=== PATIENT | male | born 1955 | race Caucasian/White ===

== ENCOUNTER 2017-05-27 22:15 | Emergency (ER) | payer OTHER ==
[~2017-05-27 22:15] MED LIST: ANAS1TAB PO; ASCO10002 PO; ASPI-482 PO; ATOR10TA PO; AZIT250T PO; CARI350T PO; CARV3.12 PO; CARV6.25 PO; CEFP200T PO; CHOL500016 PO; CYAN10005 PO; GLUC1TAB69 PO; IODI1GRA MC; LACT1CAP29 PO; LISI2.5T PO; MAGN400C PO; MULT-245 PO; NIAC1000 PO; NITR0.4T22 SL; OMEG500C PO; OXYC-323 PO; PRAS50CA PO; RESV100C PO; TAMS0.4C97 PO; TEST200V3 IM; THYR30TA PO; UBID100C26 PO; [UNRECOGNIZED DRUG - OTHER] PO
--- NOTE | 2017-05-27 22:22 | ED.ADGEN ---
Past History Past Medical History: CAD, Hypertension, [place], Pneumonia, Other Past Surgical History: Coronary Bypass Surgery, Lumbar Laminectomy, Other Smoking: Non-smoker Alcohol Use: None Drug Use: None Adult General Chief Complaint Chief Complaint " I got some chest pain..or really just numbness... " HPI HPI Patient is a 62 year old male who presents with above hx and complaints of chest pain .. or numbness, in central chest starting at 2130 hrs. Pt. has extensive cardiac hx. with 4 vessel bypass and mitral renuka. repair in 2013 at [facility]. Pt. does take daily ASA, but not anticoagulants. De fibrillator placement in 09/2014. Hx. HTN. Hx multiple surgeries- Hernia, [place] extractions, Fx ankles, Lumbar/ Disk repairs, Laminoplasty, Shoulder repair. Pt. follows at [facility] for cardiology and [facility] for maintenance healthcare. Pt hx Pneumonia in 2013. Pt. requesting transfer to [facility] if any abnormal findings on his cardiac work up, since all his cardiac care has been there. Review of Systems Review of Systems Constitutional: Denies fever or chills [] Eyes: Denies change in visual acuity, redness, or eye pain [] HENT: Denies nasal congestion or sore throat [] Respiratory: Denies cough or shortness of breath [] Cardiovascular: No additional information not addressed in [facility] [] GI: Denies abdominal pain, nausea, vomiting, bloody stools or diarrhea [] : Denies dysuria or hematuria [] Musculoskeletal: Chronic back pain or joint pain [] Integument: Denies rash or skin lesions [] Neurologic: Denies headache, focal weakness or sensory changes [] Endocrine: Denies polyuria or polydipsia [] All other systems were reviewed and found to be within normal limits, except as documented in this note. Family History Family History Noncontributory Current Medications Current Medications Current Medications Medications (Trade) Dose Ordered Sig/Leland Start Time Stop Time Status Last Admin Dose Admin Aspirin (Children'S Aspirin) 324 mg 1X ONCE 05/27/17 22:30 05/27/17 22:33 DC 05/27/17 22:30 324 MG Enoxaparin Sodium (Lovenox 100mg Syringe) 100 mg 1X ONCE 05/27/17 23:00 05/27/17 23:01 DC 05/27/17 23:00 100 MG Fentanyl Citrate (Fentanyl 2ml Vial) 25 mcg PRN Q15MIN PRN 05/27/17 22:30 05/28/17 22:29 Lactated Ringer's 1,000 ml @ 100 mls/hr Q10H 05/27/17 22:30 05/27/17 22:47 DC 05/27/17 22:30 100 MLS/HR Nitroglycerin (Nitro-Bid Oint) 1 inch 1X ONCE 05/27/17 22:30 05/27/17 22:33 DC 05/27/17 22:30 1 INCH Allergies Allergies Allergies Coded Allergies Type Severity Reaction Last Updated Verified morphine Allergy Intermediate gi -nausea / vomiting 04/01/14 Yes Physical Exam Physical Exam Constitutional: Well developed, well nourished, no acute distress, non-toxic appearance. [] HENT: Normocephalic, atraumatic, bilateral external ears normal, oropharynx moist, no oral exudates, nose normal. Glasses. Eyes: PERRLA, EOMI, conjunctiva normal, no discharge. [] Neck: Normal range of motion, no tenderness, supple, no stridor. [] Cardiovascular:Heart rate regular rhythm, Mitral murmur-flow Lungs & Thorax: Bilateral breath sounds clear to auscultation []Pacer/Defib. Lt chest wall. Midline scar Abdomen: Bowel sounds normal, soft, no tenderness, no masses, no pulsatile masses. Old surgery scars. Skin: Warm, dry, no erythema, no rash. [] Back: No tenderness, no CVA tenderness. [Old surgery scars. Extremities: No tenderness, no cyanosis, no clubbing, ROM intact, no edema. Old surgery scars. Lt. hip pain- chronic Neurologic: Alert and oriented X 3, normal motor function, normal sensory function, no focal deficits noted. [] Psychologic: Affect normal, judgement normal, mood normal. [] Current Patient Data Vital Signs Vital Signs Date Time Temp Pulse Resp B/P (MAP) Pulse Ox O2 Delivery O2 Flow Rate FiO2 05/27/17 23:15 16 98 05/27/17 22:34 98.5 69 Room Air 05/27/17 22:30 181/86 Lab Results Laboratory Tests Test 05/27/17 22:30 05/28/17 00:57 White Blood Count 11.5 x10^3/uL (4.0-11.0) H Red Blood Count 5.59 x10^6/uL (4.30-5.70) Hemoglobin 18.2 g/dL (13.0-17.5) H Hematocrit 52.5 % (39.0-53.0) Mean Corpuscular Volume 94 fL (79-100) Mean Corpuscular Hemoglobin 33 pg (25-35) Mean Corpuscular Hemoglobin Concent 35 g/dL (31-37) Red Cell Distribution Width 13.3 % (11.5-14.5) Platelet Count 165 x10^3/uL (140-400) Neutrophils (%) (Auto) 62 % (31-73) Lymphocytes (%) (Auto) 26 % (24-48) Monocytes (%) (Auto) 9 % (0-9) Eosinophils (%) (Auto) 3 % (0-3) Basophils (%) (Auto) 1 % (0-3) Neutrophils # (Auto) 7.1 x10^3uL (1.8-7.7) Lymphocytes # (Auto) 3.0 x10^3/uL (1.0-4.8) Monocytes # (Auto) 1.0 x10^3/uL (0.0-1.1) Eosinophils # (Auto) 0.3 x10^3/uL (0.0-0.7) Basophils # (Auto) 0.1 x10^3/uL (0.0-0.2) Platelet Estimate Adequate (ADEQUATE) Large Platelets Occ Prothrombin Time 10.7 SEC (9.4-11.4) Prothrombin Time INR 1.0 (0.9-1.1) PTT 28 SEC (23-33) D-Dimer (Luz) 0.28 mg/L (0.00-0.50) Sodium Level 142 mmol/L (136-145) Potassium Level 3.9 mmol/L (3.5-5.1) Chloride Level 104 mmol/L (98-107) Carbon Dioxide Level 34 mmol/L (21-32) H Anion Gap 4 (6-14) L Blood Urea Nitrogen 18 mg/dL (8-26) Creatinine 1.3 mg/dL (0.7-1.3) Estimated GFR (Cockcroft-Gault) 55.8 BUN/Creatinine Ratio 14 (6-20) Glucose Level 96 mg/dL (70-99) Calcium Level 9.5 mg/dL (8.5-10.1) Magnesium Level 1.9 mg/dL (1.8-2.4) Total Bilirubin 0.5 mg/dL (0.2-1.0) Aspartate Amino Transferase (AST) 22 U/L (15-37) Alanine Aminotransferase (ALT) 41 U/L (16-63) Alkaline Phosphatase 89 U/L (46-116) Creatine Kinase 133 U/L (39-308) Creatine Kinase MB (Mass) 1.7 ng/mL (0.0-3.6) Creatine Kinase MB Relative Index 1.3 % (0-4) Troponin I Quantitative 0.210 ng/mL (0-0.055) H XG-Xij-Y-Type Natriuretic Peptide 34 pg/mL (0-124) Total Protein 7.4 g/dL (6.4-8.2) Albumin 3.8 g/dL (3.4-5.0) Albumin/Globulin Ratio 1.1 (1.0-1.7) Lipase 204 U/L (73-393) POC Troponin I 0.01 ng/ml (<0.08) EKG EKG My interpretation of EKG shows sinus rhythm with leftward axis. But no findings acute STEMI with contralateral changes.[] Radiology/Procedures Radiology/Procedures My interpretation of chest x-ray shows cardiomegaly with pacer defibrillator placement. Previous cardiac bypass sternal wires, degenerative joint changes.[] Course & Med Decision Making Course & Med Decision Making Pertinent Labs and Imaging studies reviewed. (See chart for details) Discussed presentation, testing and tx. plan with Dr. Jenkins- [facility] Transfer-, will accept pt. , will call back for room number . 2315 hrs. [] Final Impression Final Impression 1. Chest pain 2. Hypertension[] 3. Elevated Trop. 4. Leukocytosis 5. Hx. CABG, and Mitral Repair -2013 6. Hx. Defib/ Pacer placement - 2014 Problems: Dragon Disclaimer Dragon Disclaimer This electronic medical record was generated, in whole or in part, using a voice recognition dictation system. IVANA LEBRON MD May 27, 2017 22:22
[2017-05-27] MEDS ORDERED: ASPIRIN 81 MG TAB.CHEW PO ONE (22:30)
[2017-05-27] MEDS ORDERED: NITROGLYCERIN OINT 1 GM PACKET. TP ONE (22:30)
[2017-05-27] MEDS ORDERED: IV RINGERS SOLUTION,LACTATED 1,000 ML IV SCH (22:30)
[2017-05-27 22:34] VITALS: BP 151/86
[2017-05-27 22:49] LABS: BASO # 0.1 x10^3/uL (0.0-0.2); BASO % 1 % (0-3); EOS # 0.3 x10^3/uL (0.0-0.7); EOS % 3 % (0-3); HEMATOCRIT 52.5 % (39.0-53.0); HEMOGLOBIN 18.2 g/dL (13.0-17.5); LYMPH % 26 % (24-48); MEAN CORPUSCULAR HEMOGLOBIN 33 pg (25-35); MEAN CORPUSCULAR HGB CONC 35 g/dL (31-37); MEAN CORPUSCULAR VOLUME 94 fL (79-100); MONO % 9 % (0-9); NEUT # 7.1 x10^3uL (1.8-7.7); NEUT % 62 % (31-73); PLATELET COUNT 165 x10^3/uL (140-400); RED BLOOD COUNT 5.59 x10^6/uL (4.30-5.70); RED CELL DISTRIBUTION WIDTH 13.3 % (11.5-14.5); WHITE BLOOD COUNT 11.5 x10^3/uL (4.0-11.0)
[2017-05-27] MEDS ORDERED: ENOXAPARIN ** NOTE DOSE ** SYRINGE SQ ONE (23:00)
--- NOTE | 2017-05-27 23:10 | EKG ---
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
[2017-05-27 23:11] LABS: ALBUMIN 3.8 g/dL (3.4-5.0); ALBUMIN/GLOBULIN RATIO 1.1 (1.0-1.7); CALCIUM 9.5 mg/dL (8.5-10.1); CREATININE 1.3 mg/dL (0.7-1.3); GFR 55.8; MAGNESIUM 1.9 mg/dL (1.8-2.4); POTASSIUM 3.9 mmol/L (3.5-5.1); TOTAL BILIRUBIN 0.5 mg/dL (0.2-1.0); TOTAL PROTEIN 7.4 g/dL (6.4-8.2)
[2017-05-27 23:12] LABS: PLT ESTIMATE ADEQUATE (ADEQUATE)
[2017-05-27] MEDS ORDERED: NITR0.4T22 SL (23:22)
[2017-05-27] MEDS ORDERED: CARV6.25 PO (23:23)
[2017-05-27] MEDS ORDERED: ATOR10TA60 PO (23:23)
[2017-05-27] MEDS ORDERED: LOSA100T2 PO (23:25)
[2017-05-27] MEDS ORDERED: THYR60TA2 PO (23:25)
--- NOTE | 2017-05-28 07:47 | RAD ---
Portable chest, 05/27/2017: History: Chest pain Comparison is made to a study from 04/01/2014. There has been a previous median sternotomy. A prosthetic cardiac valve is again noted. A left-sided transvenous pacemaker has been inserted with 2 leads extending into the right heart. The heart size and pulmonary vascularity are normal. The lungs are clear. There is no evidence of pleural fluid or pneumothorax. IMPRESSION: No acute cardiopulmonary abnormality is detected.
[2017-05-28 18:44] LABS: THYROID STIM HORMONE (TSH) 4.708 uIU/mL (0.358-3.740)
== END 2017-05-28 01:16 | disposition short-term general hospital (02) ==
LOC: ER 22:15
DX: R07.89 Other chest pain (principal); G89.29 Other chronic pain; I10 Essential (primary) hypertension; D72.829 Elevated white blood cell count, unspecified; I25.810 Atherosclerosis of coronary artery bypass graft(s) without angina pectoris; R79.89 Other specified abnormal findings of blood chemistry; Z95.0 Presence of cardiac pacemaker; Z88.5 Allergy status to narcotic agent
CPT/HCPCS: 36415; 71010; 80053; 80061; 82553; 83690; 83735; 83880; 84443; 84484; 85025; 85379; 85610; 85730; 93005; 96360; 96361; 96372; 99285; J1650; J7120

== ENCOUNTER 2018-09-25 15:14 | Emergency (ER) | payer OTHER ==
[~2018-09-25] VITALS: Ht 188 cm; Wt 106.1 kg
[~2018-09-25 15:14] MED LIST changes: +ATOR10TA60 PO; +LOSA100T2 PO; -OXYC-323 PO; +OXYC1TAB15 PO; +THYR60TA2 PO
[2018-09-25 15:24] VITALS: BP 156/76
--- NOTE | 2018-09-25 15:49 | RAD ---
AP chest, 09/25/2018: HISTORY: Pill stuck in throat Comparison is made to a study from 05/27/2017. A left-sided transvenous pacing device remains in place with 2 leads extending into the right heart. A cardiac valvular prosthesis is in place. The heart size and pulmonary vascularity are normal. No pulmonary infiltrate is seen. There is no evidence of pleural fluid or pneumothorax. IMPRESSION: No acute cardiopulmonary abnormality is detected. Neck for soft tissues 09/25/2018: The epiglottis is normal in size and configuration. Cartilaginous calcifications are present in the laryngeal region. No prevertebral soft tissue swelling is seen. No significant airway narrowing is appreciated. Moderate degenerative changes are present in the cervical spine, most severe at the C5-6 and C6-7 disc levels. Mild calcific plaquing is present at the carotid bifurcations. IMPRESSION: 1. Chronic findings as described above. 2. No acute abnormality is detected. Electronically signed by: Adrian Guerrero MD (09/25/2018 3:46 PM) [facility]
--- NOTE | 2018-09-25 15:58 | PHYS DOC ---
Past History Past Medical History: Other Past Surgical History: No Surgical History Smoking: Non-smoker Alcohol Use: None Drug Use: None Adult General Chief Complaint Chief Complaint: SWALLOWED FORIEGN BODY HPI HPI 63-year-old male presents with cough and concern for inhaling a pill. The patient was taken his afternoon meds when one felt like it got stuck. The patient was concerned he might have "got it down the wrong pipe". The patient has had persistent coughing since that time. When it didn't go away after several minutes he be became concerned and came to the emergency room. Review of Systems Review of Systems Constitutional: Denies fever or chills [] Eyes: Denies change in visual acuity, redness, or eye pain [] HENT: Denies nasal congestion or sore throat [] Respiratory: Cough without shortness of breath [] Cardiovascular: No additional information not addressed in HPI [] GI: Denies abdominal pain, nausea, vomiting, bloody stools or diarrhea [] : Denies dysuria or hematuria [] Musculoskeletal: Denies back pain or joint pain [] Integument: Denies rash or skin lesions [] Neurologic: Denies headache, focal weakness or sensory changes [] Endocrine: Denies polyuria or polydipsia [] All other systems were reviewed and found to be within normal limits, except as documented in this note. Allergies Allergies Allergies Coded Allergies Type Severity Reaction Last Updated Verified morphine Allergy Intermediate gi -nausea / vomiting 04/01/14 Yes Physical Exam Physical Exam Constitutional: Well developed, well nourished, no acute distress, non-toxic appearance. [] HENT: Normocephalic, atraumatic, bilateral external ears normal, oropharynx moist, no oral exudates, nose normal. [] Eyes: PERRLA, EOMI, conjunctiva normal, no discharge. [] Neck: Normal range of motion, no tenderness, supple, no stridor. [] Cardiovascular:Heart rate regular rhythm, no murmur [] Lungs & Thorax: Coughing. Bilateral breath sounds clear to auscultation [] Abdomen: Bowel sounds normal, soft, no tenderness, no masses, no pulsatile masses. [] Skin: Warm, dry, no erythema, no rash. [] Back: No tenderness, no CVA tenderness. [] Extremities: No tenderness, no cyanosis, no clubbing, ROM intact, no edema. [] Neurologic: Alert and oriented X 3, normal motor function, normal sensory function, no focal deficits noted. [] Psychologic: Affect normal, judgement normal, mood normal. [] Current Patient Data Vital Signs Vital Signs Date Time Temp Pulse Resp B/P (MAP) Pulse Ox O2 Delivery O2 Flow Rate FiO2 09/25/18 15:24 71 16 93 Room Air EKG EKG [] Radiology/Procedures Radiology/Procedures [] Course & Med Decision Making Course & Med Decision Making Pertinent Labs and Imaging studies reviewed. (See chart for details) The patient came back from x-ray, his cough began to decrease in intensity. He felt like something might have moved. His x-ray and soft tissue neck are negative for foreign body. The patient is feeling much better at this time. He is stable for discharge. [] Dragon Disclaimer Dragon Disclaimer This electronic medical record was generated, in whole or in part, using a voice recognition dictation system. Departure Departure: Impression: Primary Impression: Aspiration into airway Disposition: 01 HOME, SELF-CARE Condition: STABLE Referrals: ROSEANNA STERN (PCP) Patient Instructions: Choking, Adult Problem Qualifiers Primary Impression: Aspiration into airway Encounter type: initial encounter Qualified Codes: T17.908A - Unspecified foreign body in respiratory tract, part unspecified causing other injury, initial encounter DONALDO CORRIGAN DO Sep 25, 2018 15:58
== END 2018-09-25 16:03 | disposition home or self-care (01) ==
LOC: ER 15:14
DX: T17.990A Other foreign object in respiratory tract, part unspecified in causing asphyxiation, initial encounter (principal); Z88.5 Allergy status to narcotic agent; X58.XXXA Exposure to other specified factors, initial encounter; Y93.89 Activity, other specified; Y92.89 Other specified places as the place of occurrence of the external cause; Y99.8 Other external cause status
CPT/HCPCS: 70360; 71045; 99283